=== PATIENT | female | born 1975 | race Hispanic/Latino ===

== ENCOUNTER 2024-01-14 06:19 | Day surgery (SDC) | payer BC ==
[2024-01-12 11:40] LABS: BASOPHILS # (AUTO) 0.08 K/uL (0.00-0.20); BASOPHILS % (AUTO) 0.9 % (0.0-5.0); EOSINOPHILS # (AUTO) 0.19 K/uL (0.00-0.70); EOSINOPHILS % (AUTO) 2.1 % (0.0-8.0); HEMATOCRIT 35.3 % (36-48); IMMATURE GRANULOCYTE ABSOLUTE 0.02 K/uL (0-1); LYMPHOCYTES # (AUTO) 2.6 K/uL (1.0-4.8); LYMPHOCYTES % (AUTO) 28.6 % (21.0-51.0); MEAN CORPUSCULAR HEMOGLOBIN 31.3 pg (27.0-33.0); MEAN CORPUSCULAR VOLUME 92.2 fL (79-99); MONOCYTES # (AUTO) 0.7 K/uL (0.1-1.0); MONOCYTES % (AUTO) 7.3 % (3.0-13.0); NEUTROPHILS # (AUTO) 5.6 K/uL (1.8-7.7); NEUTROPHILS % (AUTO) 60.9 % (40.0-77.0); PLATELET COUNT (AUTO) 328 K/uL (130-400); RED BLOOD CELL COUNT(AUTO) 3.83 MIL/uL (4.00-5.50); WHITE BLOOD COUNT (AUTO) 9.1 K/uL (4.8-10.8)
[2024-01-12 11:55] VITALS: BP 140/92; PULSE 69; RESP 18
[~2024-01-14] VITALS: Ht 154.9 cm; Wt 73.9 kg
[2024-01-14] VITALS (15 sets, daily range): BP systolic 104–129; BP diastolic 62–75; PULSE 66–82; RESP 15–18
[~2024-01-14 06:19] MED LIST: FERR325T29 PO; HYDR30EM TP; IBUP-2077 PO; LEVO88TA7 PO; OLME-30 PO; ONDA-243 SL; TOPI25TA48 PO; TRAZ-185 PO; TRET40CR8 TP; VITAD50000 PO
[2024-01-14] MEDS: CEFAZOLIN SODIUM 2 GM VIAL ONE (07:05)
[2024-01-14] MEDS: LACTATED RINGERS 1000ML 1,000 ML IV ONE (07:05)
[2024-01-14] MEDS ORDERED: LIDOCAINE PF 100MG/5ML (2%) SYRINGE 5ML ONE (07:11)
[2024-01-14] MEDS ORDERED: SUCCINYLCHOLINE CHLORIDE 20 MG/ML 10 ML VIAL ONE (07:11)
[2024-01-14] MEDS ORDERED: NEOSTIGMINE METHYLSULFATE 1MG/ML IV ONE (07:13)
[2024-01-14] MEDS ORDERED: MIDAZOLAM HCL 1 MG/ML 2ML VIAL ONE (07:13)
[2024-01-14] MEDS ORDERED: PROPOFOL 10 MG/ML 20ML VIAL IV ONE (07:13)
[2024-01-14] MEDS ORDERED: DEXAMETHASONE SOD PHOSPHATE 10MG/ML 1ML VIAL ONE (07:13)
[2024-01-14] MEDS ORDERED: GLYCOPYRROLATE 0.2 MG/ML 5 ML VIAL ONE (07:13)
[2024-01-14] MEDS ORDERED: ONDANSETRON 4MG INJ ONE (07:13)
[2024-01-14] MEDS ORDERED: ROCURONIUM BROMIDE 10MG/1ML 5ML VL ONE (07:13)
[2024-01-14] MEDS ORDERED: FENTANYL CITRATE PF 50 MCG/1 ML 2ML VIAL ONE ×2 (07:14→08:01)
[2024-01-14] MEDS ORDERED: BUPIVACAINE/PF 0.25% 30ML VIAL IJ ONE (07:19)
[2024-01-14] MEDS: BUPIVACAINE/EPI/PF 0.25% 30ML VIAL IJ ONE (08:27)
[2024-01-14] MEDS: MEPERIDINE-PF 25 MG/ML SYG ONE (09:14)
== END 2024-01-14 10:49 | disposition home or self-care (01) ==
LOC: DAH 06:19
PROVIDERS: ATTEND Obstetrics & Gynecology
DX: N92.0 Excessive and frequent menstruation with regular cycle (principal); N94.5 Secondary dysmenorrhea; N84.0 Polyp of corpus uteri; Z30.2 Encounter for sterilization; I10 Essential (primary) hypertension; E03.9 Hypothyroidism, unspecified; F31.9 Bipolar disorder, unspecified; Z79.899 Other long term (current) drug therapy; Z98.890 Other specified postprocedural states; Z90.49 Acquired absence of other specified parts of digestive tract; Z98.891 History of uterine scar from previous surgery; Z88.8 Allergy status to other drugs, medicaments and biological substances; Z79.01 Long term (current) use of anticoagulants
CPT/HCPCS: 84703; 85025; 86850; 86900; 86901; 36415; 58558; 88305; A4663; A4351; A4606; A4355; J7120; J3010 ×2; J1100; J0330; J0665; J3490 ×3; J2001; J2250; J2704; J2405; J2710; J2175; J0690; A4649; A4930; A4215; A4223; A4213; A4222; A4221; J7030; A4510; A4600